=== PATIENT | male | born 1955 | race Caucasian/White ===

== ENCOUNTER 2025-09-21 18:17 | Emergency (ER) | payer BC, MEDICARE ==
[~2025-09-21] VITALS: Ht 182.9 cm; Wt 87.5 kg
--- NOTE | 2025-09-21 18:43 | NUR ---
PT WAS TAKEN TO AND FROM CT SCAN
--- NOTE | 2025-09-21 18:52 | HMCIMG ---
EXAM: CT Head Without IV contrast. CLINICAL HISTORY: Patient presents with stroke symptoms. TECHNIQUE: Axial computed tomography images of the head/brain without intravenous contrast. COMPARISON: None provided. FINDINGS: BRAIN: Periventricular hypodensities suspicious for chronic microangiopathic ischemic changes. Mild diffuse cerebral atrophy with prominent cortical sulci, basal cisterns, and bilateral sylvian fissures. Hypodensity in the left parietal and left temporal lobes suspicious for ischemic changes. No acute hemorrhage, mass lesion, midline shift, or extra-axial collection. VENTRICLES: No hydrocephalus. ORBITS: The orbits are unremarkable. SINUSES AND MASTOIDS: Postsurgical changes along the bilateral maxillary sinuses. The remaining paranasal sinuses and mastoid air cells are clear. BONES: No fracture. SOFT TISSUES: Unremarkable. IMPRESSION: Left parietal and left temporal lobe hypodensities suspicious for subacute to chronic ischemic changes. Recommend MRI brain, with diffusion weighted images, for further evaluation. Chronic microangiopathic ischemic changes. Mild diffuse cerebral atrophy. /[place]
[2025-09-21 18:57] LABS: IMMATURE GRANULOCYTE ABSOLUTE 0.02 K/uL (0-1); NUCLEATED RED BLOOD CELLS 0.0 % (0.0-0.19); PLATELET COUNT (AUTO) 213 K/uL (130-400); RED BLOOD CELL COUNT(AUTO) 5.01 MIL/uL (4.50-6.20); RED CELL DISTRIBUTION WIDTH 12.8 % (11.0-15.5); WHITE BLOOD COUNT (AUTO) 8.4 K/uL (4.8-10.8)
--- NOTE | 2025-09-21 18:57 | CONS ---
CONSULT NOTE: [place] [facility] Note # Demographics Consult Type: Acute Stroke Level 1 (0-4.5 hrs) Patient Location: Emergency Room First Name: KRYSTIN Dorantes Last Name: JAKE Date of : 1955 Age: 70 Gender: Male Facility: [facility] Time of Initial Page (Central Time): 09/21/2025 18:36 First Contact with Site (Central Time): 09/21/2025 18:37 # HPI History: 70m h/o HTN. slurred speech and right facial droop. onset 9pm yesterday. Last Known Normal: - I have collected independent history specific to time last normal or last known well. We have collaborated with the provider and at this time, we have the most current timeline with the information that is available. # Scores Time of exam and NIHSS (Central Time): 09/21/2025 18:48 Level of Consciousness 1a: [0] = Alert; keenly responsive LOC Questions 1b: [0] = Answers both questions correctly LOC Commands 1c: [0] = Performs both tasks correctly Best Gaze 2: [0] = Normal Visual 3: [0] = No visual loss Facial Palsy 4: [2] = Partial paralysis Motor Arm Left 5a: [0] = No drift Motor Arm Right 5b: [0] = No drift Motor Leg Left 6a: [0] = No drift Motor Leg Right 6b: [0] = No drift Limb Ataxia 7: [0] = Absent Sensory 8: [0] = Normal Best Language 9: [1] = Ntoa-gf-acdvcwch aphasia Dysarthria 10: [1] = Zhev-ta-qbkzusif dysarthria Extinction and Inattention 11: [0] = No abnormality NIHSS Total: 4 # Exam SBP: 152 DBP: 91 # [facility] Past Medical History: - hypertension - anxiety Social History: non-smoker Medications: - No antithrombotics or anticoagulants reported # Data Time Head CT personally read by me (Central Time): 09/21/2025 18:[address]: - no bleed - preliminarily reviewed by me, please refer to radiology read for official reading left MCA hyperdense sign with ischemic changes in left MCA territory around insula and temporal region and also left parietal region # Assessment Impression: - Ischemic Stroke (Acute) # Plan Thrombolytic/Intervention: NOT IV Thrombolysis or IA Intervention candidate Thrombolytic Exclusion: > 4.5 hours Intraarterial Exclusion: - unfavorable imaging/hypodensity Target Blood Pressure: - SBP < 220 - DBP < 120 Labs: - B12 - hemoglobin A1c - lipid panel - TSH - urine drug screen Imaging: (urgency: STAT): - CT Angiogram Head and CT Angiogram Neck AND call back with results if abnormal Imaging: (urgency: routine): - MRI Brain without contrast Diagnostic Test: - echo with bubble study Therapy/Evaluation: - NPO until swallow evaluation - PT/OT evaluation - speech/swallow consultation Medication: - clopidogrel (Plavix) 75 mg PO daily - aspirin 81 mg PO daily - start statin with goal of LDL < 70 ASA 325mg x1 now. Other: - If patient has any neurological deterioration please call me back immediately - I have discussed my recommendations with the referring provider - permissive hypertension - telemetry monitoring - will need event monitor or loop recorder as outpatient if atrial fibrillation not found as inpatient # Logistics Attestation of consult completion: The patient is located at: [facility]. Facility staff participated in the visit. I performed this telemedicine visit from my offsite office utilizing interactive 2 way audio and visual telecommunication technology at the request of the onsite emergency room provider. Total time spent in telemedicine encounter: I spent 21 minutes reviewing clinical data and/or imaging, obtaining history, examining the patient, communicating with the onsite care team, and in preparation of this report. # Demographics First Name: KRYSTIN Dorantes Last Name: GENEVA Facility: [facility] KRISSY GLOVER MD Sep 21, 2025 18:57
[2025-09-21 19:08] LABS: CREATININE 1.1 mg/dL (0.5-1.3); GLOMERULAR FILTR. RATE CALC 73.0 mL/min (>90); GLUCOSE,RANDOM 151.0 mg/dL (70-105); SODIUM SERUM 135.0 mmol/L (136-145); UREA NITROGEN, BLOOD 10.0 mg/dL (7-18)
--- NOTE | 2025-09-21 19:08 | ERN ---
ED Note History of Present Illness Stated Complaint: SLURRED SPEECH Chief Complaint: Slurred Speech Time Seen by MD: 18:29 Time Seen by Midlevel: 18:33 Dictation: 70-year-old male brought in by family member JORDIN for slurred speech and right- sided facial droop. As per family member and patient these symptoms started yesterday at 9:00 p.m.. Patient states he also has a headache with the symptoms yesterday. Today patient states he feels like he is doing a little better but decided to come and be evaluated. At the time of my assessment patient has a NIH of three. Code stroke activated. Allergies: Coded Allergies: No Known Drug Allergies (Unverified Allergy, Unknown, 09/21/25) Past Medical History Past Medical History: Anxiety, High Cholesterol, Hypertension Surgical History: Other Surgical History Other: CLEFT PALATE Review of System Dictation Constitutional: Negative for fever,chills, and weight loss Eyes: Negative for injury, pain,redness, and discharge ENT: Negative for injury,pain or swelling Cardiovascular: Negative for chest pain, palpitations, and edema Respiratory: Negative for shortness of breath, cough, and wheezing, Abdomen/GI: Negative for abdominal pain, nausea, vomiting, diarrhea, and constipation Back: Negative for injury and pain : Negative for injury, bleeding and discharge MS/Extremity: Negative for injury and deformity Skin: Negative for rash, and discoloration Neuro: Negative for headache, weakness, numbness, tingling, and seizure , positive for slurred speech and facial droop Psych: Negative for suicide ideation, homicidal ideation, and hallucinations Review of Systems: was completed Initial Vital Sign VS Vital Signs Date Time Temp Pulse Resp B/P (MAP) Pulse Ox O2 Delivery O2 Flow Rate FiO2 09/21/25 18:20 98.1 78 18 161/106 98 Room Air 0 09/21/25 19:32 21 Physical Exam Dictation General: awake, alert, NAD Head/Face: Normocephalic, atraumatic Eyes: PERRL, EOMI, vision at baseline ENT: oral cavity clear, TMs clear, no signs of infection Neck: Trachea midline, supple, no nuchal rigidity Cardiovascular: RRR, normal S1/S2, No MRGs, no JVD Respiratory: CTAB, no respiratory distress, No rales or wheezes Abdomen: Soft, non-tender, non-distended, normal bowel sounds, no guarding or rebound. Skin: Warm, dry, normal turgor, no rash MS/Extremity: Pulses equal, no cyanosis, neurovascular intact, FROM Neuro: COAx4, GCS 15, strength 5/5, CN 2-12 intact, right facial droop and slu rred speech Psych: Normal behavior, mood, and affect normal Results (Laboratory/Radiology) Laboratory/Radiology Laboratory Tests Test 09/21/25 18:21 09/21/25 18:42 Whole Blood Glucose 155 MG/DL (70-110) H White Blood Count 8.4 K/uL (4.8-10.8) Red Blood Count 5.01 MIL/uL (4.50-6.20) Hemoglobin 15.4 g/dL (14.0-18.0) Hematocrit 43.3 % (42-54) Mean Corpuscular Volume 86.4 fL (79-99) Mean Corpuscular Hemoglobin 30.7 pg (27.0-33.0) Mean Corpuscular Hemoglobin Concent 35.6 g/dL (32.0-36.0) Red Cell Distribution Width 12.8 % (11.0-15.5) Platelet Count 213 K/uL (130-400) Mean Platelet Volume 9.8 fL (7.5-10.5) Immature Granulocyte % (Auto) 0.2 % (0-1) Neutrophils (%) (Auto) 67.2 % (40.0-77.0) Lymphocytes (%) (Auto) 22.7 % (21.0-51.0) Monocytes (%) (Auto) 8.8 % (3.0-13.0) Eosinophils (%) (Auto) 0.5 % (0.0-8.0) Basophils (%) (Auto) 0.6 % (0.0-5.0) Neutrophils # (Auto) 5.7 K/uL (1.8-7.7) Lymphocytes # (Auto) 1.9 K/uL (1.0-4.8) Monocytes # (Auto) 0.7 K/uL (0.1-1.0) Eosinophils # (Auto) 0.04 K/uL (0.00-0.70) Basophils # (Auto) 0.05 K/uL (0.00-0.20) Absolute Immature Granulocyte (auto 0.02 K/uL (0-1) Nucleated Red Blood Cells 0.0 % (0.0-0.19) Prothrombin Time 10.6 SEC (9.6-11.6) Prothromb Time International Ratio 1.00 (0.85-1.15) Activated Partial Thromboplast Time 26.8 SEC (26.3-35.5) Sodium Level 135 mmol/L (136-145) L Potassium Level 3.6 mmol/L (3.5-5.1) Chloride Level 100 mmol/L (101-111) L Carbon Dioxide Level 27 mmol/L (21-32) Blood Urea Nitrogen 10 mg/dL (7-18) Creatinine 1.1 mg/dL (0.5-1.3) Glomerular Filtration Rate Calc 73 mL/min (>90) Random Glucose 151 mg/dL (70-105) H Total Calcium 8.8 mg/dL (8.5-10.1) Total Creatine Kinase 72 U/L (21-232) Troponin I High Sensitivity 4 ng/L (4-75) LDL Cholesterol 88 mg/dL (0-99) Labs Reviewed?: Yes X-RAY Comment: [place] [address] [place] [id number] IMAGING REPORT Signed PATIENT: KRYSTIN JOSEPH MR#: [id number] : 1955 SEX: M AGE: 70 LOCATION: [facility] ORDER 24 STATUS: [facility] REPORT#: [id number] SERVICE 22 REASON: stroke ORDERING PHYSICIAN: MARS CASTANEDA CNP PROCEDURE: CXR1VW - CHEST 1VW EXAM: CR Chest, 1 View. CLINICAL HISTORY: stroke COMPARISON: None provided. FINDINGS: LUNGS: There is no mass, infiltrate, or acute pulmonary abnormality. PLEURAL SPACES: No evidence of pleural effusion or pneumothorax. MEDIASTINUM: The cardiomediastinal silhouette is within normal limits. BONES: No acute osseous abnormality. IMPRESSION: No acute cardiopulmonary pathology is evident. /[place] DICTATED BY: SUDHAKAR RAMOS MD DATE: 09/21/252100 ELECTRONICALLY SIGNED BY: SUDHAKAR RAMOS MD DATE: 09/21/252100 CT Scan Comment: [place] [address] [place] [id number] IMAGING REPORT Signed PATIENT: KRYSTIN JOSEPH MR#: [id number] : 1955 SEX: M AGE: 70 LOCATION: ED ORDER 56 STATUS: REG ER REPORT#: [id number] SERVICE 54 REASON: stroke like symptoms ORDERING PHYSICIAN: MARS CASTANEDA CNP PROCEDURE: CTA [facility] - CT ANGIO HEAD AND NECK EXAM: CTA Head and Neck with and without Intravenous Contrast. CLINICAL HISTORY: Patient presents with stroke-like symptoms. TECHNIQUE: Axial CTA images of the head and neck performed with and without intravenous contrast in the arterial phase. Coronal and sagittal reformatted images were generated and reviewed. 3-D reformatted images generated on an independent workstation were also reviewed. NASCET criteria were used in assessment of stenosis. CONTRAST: Administered intravenously. COMPARISON: None provided. FINDINGS: VASCULATURE ??? NECK: COMMON CAROTID ARTERIES: Atheromatous calcifications in the aortic arch. Eccentric atheromatous calcified plaque at the left common carotid artery origin causing approximately 10???20% luminal narrowing. No dissection or occlusion. EXTERNAL CAROTID ARTERIES: Patent. INTERNAL CAROTID ARTERIES: Left ICA origin demonstrates eccentric atheromatous calcified plaque causing 80???90% luminal narrowing. Proximal left ICA demonstrates eccentric atheromatous calcified plaque causing 50???60% luminal narrowing. Right cervical ICA demonstrates long-segment complete luminal thrombosis with questionable retrograde flow at the petrous segment. Right cavernous, clinoid, and supraclinoid ICA shows diffuse intimal thickening with eccentric atheromatous non-calcified plaques causing 60???70% luminal narrowing. Left cavernous and clinoid ICA demonstrates eccentric atheromatous calcified and non-calcified plaques causing 50???60% luminal narrowing. No dissection. VERTEBRAL ARTERIES: No significant stenosis. No dissection or occlusion. HEAD: ANTERIOR CEREBRAL ARTERIES: No significant stenosis, occlusion, or aneurysm. MIDDLE CEREBRAL ARTERIES: Near complete stenosis in the M1 segment of the left middle cerebral artery. Contrast-enhancement is present in the distal segments of the left middle cerebral artery. Unremarkable right middle cerebral artery. POSTERIOR CEREBRAL ARTERIES: No significant stenosis, occlusion, or aneurysm. BASILAR ARTERY: No significant stenosis, occlusion, or aneurysm. OTHER: SOFT TISSUES: No acute abnormality. BONES: No acute osseous abnormality. IMPRESSION: Critical stenosis of the left internal carotid artery origin measuring 80???90% by NASCET criteria. 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 Near complete stenosis of the M1 segment of the left middle cerebral artery with preserved contrast flow in the distal segment. Moderate intracranial ICA atherosclerotic stenoses bilaterally, as detailed above. /[place] DICTATED BY: RUPESH BLUM Jr., MD DATE: 09/21/252120 ELECTRONICALLY SIGNED BY: RUPESH BLUM Jr., MD DATE: 09/21/252120 [place] [address] IMAGING REPORT Signed PATIENT: KRYSTIN JOSEPH MR#: [id number] : 1955 SEX: M AGE: 70 LOCATION: [facility] ORDER 24 STATUS: REG REPORT#: [id number] SERVICE 22 REASON: stroke ORDERING PHYSICIAN: MARS CASTANEDA CNP PROCEDURE: HEAD WO - CT HEAD/BRAIN W/O CONTRAST EXAM: CT Head Without IV contrast. CLINICAL HISTORY: Patient presents with stroke symptoms. TECHNIQUE: Axial computed tomography images of the head/brain without intravenous contrast. COMPARISON: None provided. FINDINGS: BRAIN: Periventricular hypodensities suspicious for chronic microangiopathic ischemic changes. Mild diffuse cerebral atrophy with prominent cortical sulci, basal cisterns, and bilateral sylvian fissures. Hypodensity in the left parietal and left temporal lobes suspicious for ischemic changes. No acute hemorrhage, mass lesion, midline shift, or extra-axial collection. VENTRICLES: No hydrocephalus. ORBITS: The orbits are unremarkable. SINUSES AND MASTOIDS: Postsurgical changes along the bilateral maxillary sinuses. The remaining paranasal sinuses and mastoid air cells are clear. BONES: No fracture. SOFT TISSUES: Unremarkable. IMPRESSION: Left parietal and left temporal lobe hypodensities suspicious for subacute to chronic ischemic changes. Recommend MRI brain, with diffusion weighted images, for further evaluation. Chronic microangiopathic ischemic changes. Mild diffuse cerebral atrophy. /[place] DICTATED BY: RUPESH BLUM Jr., MD DATE: 09/21/251951 ELECTRONICALLY SIGNED BY: RUPESH BLUM Jr., MD DATE: 09/21/251951 ED Course ED Course Orders Procedure Category Date Status Time Bedside Swallow Eval ST 09/21/25 Transmitted 18:23 Cbc With Differential LAB 09/21/25 Complete 18:23 Prothrombin Time With LAB 09/21/25 Complete INR 18:23 Partial LAB 09/21/25 Complete Thromboplastin Time 18:23 Ct Head/Brain W/O CT 09/21/25 Resulted Contrast 18:23 Chest 1vw RAD 09/21/25 Resulted 18:23 12 Lead Ekg Tracing- EKG 09/21/25 Logged Technical 18:23 Creatine Kinase, Total LAB 09/21/25 Complete 18:23 Ldl Direct LAB 09/21/25 Complete 18:23 Troponin I High LAB 09/21/25 Complete Sensitivity 18:23 Urinalysis Profile LAB 09/21/25 Logged 18:23 Bedside Glucose CPOE 09/21/25 Transmitted Fingerstick 18:23 Basic Metabolic Panel LAB 09/21/25 Complete 18:23 Ct Angio Head And Neck CT 09/21/25 Resulted 18:55 Clopidogrel 75mg Tab PHA 09/21/25 Complete (Plavix 75mg) 19:30 Iohexol (Omnipaque) PHA 09/21/25 Complete 19:26 Aspirin 300mg Supp PHA 09/21/25 Complete (Aspirin 300mg Supp) 20:00 Aspirin 300mg Supp PHA 09/21/25 Complete (Aspirin 300mg Supp) 20:05 Clopidogrel 300mg Tab PHA 09/21/25 Complete (Plavix 300mg Tab) 21:30 Current Medications Medications (Trade) Dose Ordered Sig/Travis Route PRN Reason Start Time Stop Time Status Last Admin Dose Admin Aspirin (Aspirin 300mg Supp) 300 mg ONCE ONCE VT 09/21/25 20:00 09/21/25 20:05 DC 09/21/25 20:14 Aspirin (Aspirin 300mg Supp) 300 mg STK-MED ONCE VT 09/21/25 20:05 09/21/25 20:05 DC Aspirin (Aspirin 325mg Tab) 325 mg ONCE ONCE PO 09/21/25 19:30 09/21/25 19:31 Cancel Clopidogrel Bisulfate (plaVIX 300MG TAB) 300 mg ONCE ONCE PO 09/21/25 21:30 09/21/25 21:31 DC 09/21/25 21:23 Clopidogrel Bisulfate (plaVIX 75MG) 75 mg ONCE ONCE PO 09/21/25 19:30 09/21/25 19:31 DC Iohexol (Omnipaque) 75 ml STK-MED ONCE IV 09/21/25 19:26 09/21/25 19:26 DC Vital Signs Date Time Temp Pulse Resp B/P (MAP) Pulse Ox O2 Delivery O2 Flow Rate FiO2 09/21/25 20:35 98.1 76 14 166/88 98 Room Air* 0 09/21/25 19:32 76 14 162/91 96 Room Air* 0 09/21/25 18:20 98.1 78 18 161/106 98 Room Air 0 Medical Decision Making MDM MDM: 70-year-old male brought in by family member POV for slurred speech and right-sided facial droop. As per family member and patient these symptoms started yesterday at 9:00 p.m.. Patient states he also has a headache with the symptoms yesterday. Today patient states he feels like he is doing a little better but decided to come and be evaluated. Patient isn't having any previous heart attack, stroke or any arrhythmias. Denies being on any blood thinner. At the time of my assessment patient has a NIH of 4. Code stroke activated. Patient has a out of the window for TNK, in NIH is three, low for endovascular intervention. Blood work is unremarkable. EKGs shows no arrhythmias. 1899 spoke to post tronic machine operator tele neurologist. Recommended patient at a CTA of the head and neck along with the has been in Plavix. Recommended if the CTA is positive for an occlusion for us to transfer the patient out. 2027 received report for CTA, spoke to the supervisor hospitality house to transfer patient out for higher level of care. [address] Grande from [facility], recommended for 300 more of Plavix, admit to the stroke unit or ICU preferably, NPO after midnight, and keep a blood pressure between 150 and 180 systolic. Differential diagnosis:cva, bells palsy, ich Rationale: Tests considered and ordered secondary to shared decision making include: labs, ECG and radiology Previous outside records reviewed: Old ER visits. Risk of complication and/or morbidity or mortality of patient management: None Medications-Per medication reconciliation Need for hospitalization: Patient does meet criteria for hospitalization. Need for emergency major/minor surgery: No There are no social concerns with this patient. Prescription drug management Prescriptions will include symptomatic care Patient's prior external medical records from other ER visits were reviewed by me as indicated. Prior testing and results from previous visits were reviewed. Prior tests were taken into account with medical decision making and resource utilization, independent historian/historians were used to obtain complete medical history. I independently interpreted the test that were performed, results were reviewed by me and considered findings on radiology if ordered. Medical management and examination interpretation discussions were had by me with other qualified healthcare professionals as indicated for the patient's care. Critical Care Note Critical Time: 30 minutes DX & DISP Disposition: Transfer Decision to Admit Date: Sep 21, 2025 Decision to Admit Time: 21:13 Departure Impression: Primary Impression: Stroke Condition: Stable Referrals: ANMOL SANTIAGO MD (PCP) I have reviewed the case, and I agree with, Diagnosis and Plan MARS CASTANEDA CNP Sep 21, 2025 19:08 LIDIA CASIANO MD Sep 22, 2025 00:21
[2025-09-21 19:12] LABS: CREATINE KINASE, TOTAL 72.0 U/L (21-232); LDL DIRECT 88.0 mg/dL (0-99)
[2025-09-21 19:14] LABS: INR 1.0 (0.85-1.15)
[2025-09-21] MEDS ORDERED: IOHEXOL-350 75 ML VIAL IV ONE (19:26)
[2025-09-21] MEDS ORDERED: ASPIRIN 325MG TAB PO ONE (19:30)
--- NOTE | 2025-09-21 20:01 | HMCIMG ---
EXAM: CR Chest, 1 View. CLINICAL HISTORY: stroke COMPARISON: None provided. FINDINGS: LUNGS: There is no mass, infiltrate, or acute pulmonary abnormality. PLEURAL SPACES: No evidence of pleural effusion or pneumothorax. MEDIASTINUM: The cardiomediastinal silhouette is within normal limits. BONES: No acute osseous abnormality. IMPRESSION: No acute cardiopulmonary pathology is evident. /[place]
[2025-09-21] MEDS: ASPIRIN 300 MG SUPPOSITORY PR ONE ×2 (20:12→20:14)
--- NOTE | 2025-09-21 20:22 | HMCIMG ---
EXAM: CTA Head and Neck with and without Intravenous Contrast. CLINICAL HISTORY: Patient presents with stroke-like symptoms. TECHNIQUE: Axial CTA images of the head and neck performed with and without intravenous contrast in the arterial phase. Coronal and sagittal reformatted images were generated and reviewed. 3-D reformatted images generated on an independent workstation were also reviewed. NASCET criteria were used in assessment of stenosis. CONTRAST: Administered intravenously. COMPARISON: None provided. FINDINGS: VASCULATURE ??? NECK: COMMON CAROTID ARTERIES: Atheromatous calcifications in the aortic arch. Eccentric atheromatous calcified plaque at the left common carotid artery origin causing approximately 10???20% luminal narrowing. No dissection or occlusion. EXTERNAL CAROTID ARTERIES: Patent. INTERNAL CAROTID ARTERIES: Left ICA origin demonstrates eccentric atheromatous calcified plaque causing 80???90% luminal narrowing. Proximal left ICA demonstrates eccentric atheromatous calcified plaque causing 50???60% luminal narrowing. Right cervical ICA demonstrates long-segment complete luminal thrombosis with questionable retrograde flow at the petrous segment. Right cavernous, clinoid, and supraclinoid ICA shows diffuse intimal thickening with eccentric atheromatous non-calcified plaques causing 60???70% luminal narrowing. Left cavernous and clinoid ICA demonstrates eccentric atheromatous calcified and non-calcified plaques causing 50???60% luminal narrowing. No dissection. VERTEBRAL ARTERIES: No significant stenosis. No dissection or occlusion. HEAD: ANTERIOR CEREBRAL ARTERIES: No significant stenosis, occlusion, or aneurysm. MIDDLE CEREBRAL ARTERIES: Near complete stenosis in the M1 segment of the left middle cerebral artery. Contrast-enhancement is present in the distal segments of the left middle cerebral artery. Unremarkable right middle cerebral artery. POSTERIOR CEREBRAL ARTERIES: No significant stenosis, occlusion, or aneurysm. BASILAR ARTERY: No significant stenosis, occlusion, or aneurysm. OTHER: SOFT TISSUES: No acute abnormality. BONES: No acute osseous abnormality. IMPRESSION: Critical stenosis of the left internal carotid artery origin measuring 80???90% by NASCET criteria. 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 Near complete stenosis of the M1 segment of the left middle cerebral artery with preserved contrast flow in the distal segment. Moderate intracranial ICA atherosclerotic stenoses bilaterally, as detailed above. /[place]
--- NOTE | 2025-09-21 20:55 | NUR ---
TRANSFER CALL PLACED TO [facility] STENCILER TO INITIATE TRANSFER FOR NEUROLOGY SERVICES
--- NOTE | 2025-09-21 22:03 | NUR ---
TRANSFER UPDATE [facility] FLOORING INSTALLER STATES THEY ARE CREATING A BED IN ICU FOR THIS PATIENT.
--- NOTE | 2025-09-21 23:48 | NUR ---
TRANSFER PT. ACCEPTED @ 2116 BY ADRIANO PRESSLEY MD FOR TRANSFER TO [facility]. BED ASSIGNMENT AT THIS TIME: 4242. REPORT: [id number]
--- NOTE | 2025-09-21 23:59 | NUR ---
[facility] CALLED FOR TRANSPORT OF MONITORED, ICU NEUROLOGY PATIENT.
--- NOTE | 2025-09-22 00:30 | NUR ---
REPORT GIVEN TO ADA RN, ROOM 4242.
[2025-09-22 00:31] VITALS: BP 150/75; PULSE 75; RESP 18; TEMP 98.5; O2SAT 98
--- NOTE | 2025-09-22 07:30 | EKG ---
[facility] Test Date: 2025-09-21 Test Time: 18:56:48 Pat Name: KRYSTIN JOSEPH Department: ED Patient ID: [id number] Room: Gender: M Phlebotomist Prn: [id number] : 1955 Requested By: MARS CASTANEDA Order Number: [id number] Reading MD: Yohannes Murray Measurements Intervals [place] Rate: 79 P: 39 WA: 166 QRS: 14 QRSD: 103 T: 46 QT: 382 QTc: 439 Interpretive Statements Sinus rhythm Compared to ECG 03/24/2015 18:28:04 No significant changes Electronically Signed On 09-22-2025 18:35:37 DIRECTOR OF PRIMARY by Yohannes Murray Please click the below link to view image of tracing.
--- NOTE | 2025-09-22 12:20 | NUR ---
SPEECH NOTE: Orders to evaluate patient received as per stroke protocol. However, patient had already transferred to [facility] by the time [facility] arrived to facility. Speech therapy services were not rendered. Addendum: 09/22/[address] [facility] Amended: Links added.
== END 2025-09-22 00:32 | disposition short-term general hospital (02) ==
LOC: EDH 18:17
DX: I63.9 Cerebral infarction, unspecified (principal); E78.00 Pure hypercholesterolemia, unspecified; G51.0 Bell's palsy; I10 Essential (primary) hypertension; Z79.02 Long term (current) use of antithrombotics/antiplatelets; Z79.82 Long term (current) use of aspirin; Z87.730 Personal history of (corrected) cleft lip and palate
CPT/HCPCS: 99291; 70496; 71045; 82550; 83721; 84484; 80048; 85025; 85610; 85730; 82948; 36415; 70498; 93005; 70450; Q9967